=== PATIENT | male | born 1995 | race American Indian/Alaskan Native ===

== ENCOUNTER 2020-11-16 11:50 | Emergency (ER) | payer SELFPAY ==
[2020-11-16 12:57] VITALS: BP 116/78
--- NOTE | 2020-11-16 14:10 | Emergency Department Report ---
ED Back Pain/Injury HPI - General Chief Complaint: Back Pain/Injury Stated Complaint: BACK PAIN Time Seen by Provider: 11/16/20 13:33 Source: patient Limitations: No Limitations - History of Present Illness Initial Comments: 25-year-old -[place] male presents to the emergency room complaining of back pain that he has had for years. Patient denies any recent trauma. Denies any IV drug use denies any chronic steroid use denies any urinary problems no history of cancer. Patient denies any unintentional weight loss. States he has not taken anything for pain in months. 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 Complaint: back pain -: year(s) (10) Similar Symptoms Previously: Yes - Related Data Previous Rx's Medication Instructions Recorded Last Taken Type Cyclobenzaprine [Flexeril 10mg] 10 mg PO BID PRN #10 tablet 03/31/14 Unknown Rx Ibuprofen [Motrin 600 MG tab] 600 mg PO Q8H PRN #14 tablet 03/31/14 Unknown Rx Allergies Allergy/AdvReac Type Severity Reaction Status Date / Time No Known Allergies Allergy Verified 11/16/20 12:56 ED Review of Systems ROS: Stated complaint: BACK PAIN Other details as noted in HPI ED Past Medical Hx - Past Medical History Previous Medical History?: No - Surgical History Past Surgical History?: No - Social History Smoking Status: Never Smoker Substance Use Type: None - Medications Home Medications: Home Medications Medication Instructions Recorded Confirmed Last Taken Type Cyclobenzaprine [Flexeril 10mg] 10 mg PO BID PRN #10 tablet 03/31/14 Unknown Rx Ibuprofen [Motrin 600 MG tab] 600 mg PO Q8H PRN #14 tablet 03/31/14 Unknown Rx ED Physical Exam - General Limitations: No Limitations ED Course Vital Signs 11/16/20 12:55 Temperature 98.1 F Pulse Rate 101 H Respiratory 16 Rate Blood Pressure 116/78 [Right] O2 Sat by Pulse 96 Oximetry ED Medical Decision Making - Medical Decision Making 25-year-old -[place] male presents to the emergency room complaining of back pain that he has had for years. Patient denies any recent trauma. Denies any IV drug use denies any chronic steroid use denies any urinary problems no history of cancer. Patient denies any unintentional weight loss. States he has not taken anything for pain in months. 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 Patient referred to a primary care provider. Critical care attestation.: If time is entered above; I have spent that time in minutes in the direct care of this critically ill patient, excluding procedure time. ED Disposition Clinical Impression: Chronic back pain greater than 3 months duration Disposition: 01 HOME / SELF CARE / HOMELESS Is pt being admited?: No Does the pt Need Aspirin: No Condition: Stable Instructions: Back Injury Prevention, [id number], Chronic Back Pain Additional Instructions: Please take your ibuprofen for pain management. I do recommend that she follow- up with an orthopedic provider. I have listed 1 below for your convenience. Referrals: PRIMARY CARE [Primary Care Provider] - 3-5 Days [facility] [Provider Group] - 3-5 Days Forms: Work/School Release Form(ED) Time of Disposition: 14:10
== END 2020-11-16 14:28 | disposition home or self-care (01) ==
LOC: ED 11:50
DX: G89.29 Other chronic pain (principal); M54.5 Low back pain
CPT/HCPCS: 99282